=== PATIENT | female | born 1990 | race American Indian/Alaskan Native ===

== ENCOUNTER 2017-03-07 07:23 | Day surgery (SDC) | payer BC ==
[~2017-03-07 07:23] MED LIST: ANCEF/STERILE WATER 2 GM/20 ML IV NR
--- NOTE | 2017-03-07 09:31 | Anesthesia Consultation ---
Anesthesia Consult and Med Hx Date of service: 03/07/17 - Airway Anesthetic Teeth Evaluation: Good ROM Head & Neck: Adequate Mental/Hyoid Distance: Adequate Mallampati Class: Class I - Pulmonary Exam CTA: Yes - Cardiac Exam Cardiac Exam: RRR Anesthetic Concerns: multiple veneers - Pre-Operative Health Status ASA Pre-Surgery Classification: ASA2 Proposed Anesthetic Plan: General - Pre-Anesthesia Comment Pre-Anesthesia Comments: S/P ASD repair, H/O TIA's due to ASD. None since repair - Central Nervous System Hx Psychiatric Problems: Yes (PTSD CHILD) - Hematic Hx Anemia: Yes - Other Systems Hx Alcohol Use: No Hx Substance Use: No Hx Cancer: No
--- NOTE | 2017-03-07 09:31 | Anesthesia Day of Surgery ---
Anesthesia Day of Surgery - Day of Surgery Patient Examined: Yes Patient H&P Reviewed: Yes Patient is NPO: Yes
[2017-03-07] MEDS ORDERED: ZOFRAN IV PRN (09:32)
[2017-03-07] MEDS ORDERED: NORCO 5/325 PO PRN (09:32)
[2017-03-07 09:56] LABS: Hematocrit 40.4 % (30.3-42.9); Hemoglobin 13.2 gm/dl (10.1-14.3)
[2017-03-07] MEDS ORDERED: VERSED IV NR (10:00)
[2017-03-07] MEDS ORDERED: PEPCID PO NR (10:00)
[2017-03-07] MEDS ORDERED: LACTATED RINGERS 1,000 ML IV SCH (10:00)
[2017-03-07] MEDS ORDERED: DILAUDID ONE (10:27)
[2017-03-07] MEDS ORDERED: DIPRIVAN 10 MG/ML IV ONE (10:27)
[2017-03-07] MEDS ORDERED: REGLAN PO NR (11:00)
[2017-03-07] MEDS ORDERED: XYLOCAINE MPF 2% ONE (11:54)
[2017-03-07] MEDS ORDERED: ZOFRAN ONE (12:03)
[2017-03-07] MEDS ORDERED: DECADRON ONE (12:03)
[2017-03-07] MEDS ORDERED: NEO SYNEPHRINE ONE (12:36)
[2017-03-07] MEDS ORDERED: NACL 0.9% 100 ML ONE (12:37)
[2017-03-07] MEDS ORDERED: NACL 0.9% IR ONE (12:46)
[2017-03-07] MEDS: DILAUDID IV PRN ×4 (13:20→15:00)
--- NOTE | 2017-03-07 13:55 | Operative Report ---
PREOPERATIVE DIAGNOSES: 1. Open wound of left axilla. 2. Hidradenitis suppurativa. POSTOPERATIVE DIAGNOSES: 1. Open wound of left axilla. 2. Hidradenitis suppurativa. PROCEDURE: 1. Tangential excision of ____ left axilla, approximately 80 square cm. 2. Split thickness skin graft to left axilla, 80 square cm. 3. Application of wound VAC to left axilla, 80 square cm. SURGEON: Raffi Carbajal MD DESCRIPTION OF PROCEDURE: The patient was brought to the operating room and placed on the table in supine position. Following administration of general anesthesia, the left arm and left thigh were prepped with a Betadine solution, draped in usual sterile manner. A #10 blade scalpel was used to tangentially excise the wound of the axilla until healthy bleeding tissue was encountered. Hemostasis controlled using electrocautery. Shar Brown dermatome was then used to harvest split thickness skin graft from the left thigh, measuring of an inch, meshed one half to one, then secured over the left axillary recipient site with lo, covered by Xeroform gauze and application of a wound VAC in standard manner. The donor site was covered with Xeroform gauze, ABD pad. The patient tolerated the procedure well and returned to recovery room in stable condition. JOB# [id number] FTW/NTS
--- NOTE | 2017-03-07 14:14 | Post Anesthesia Evaluation ---
- Post Anesthesia Evaluation Patient Participated: No (resting) Airway Patent: Yes Stable Respiratory Function: Yes Nausea/Vomiting: No Temp > 96.8F: Yes Pain Manageable: Yes Adequeate Hydration: Yes Anesthesia Complications: No Block Receding Appropriately: Not Applicable Patient on Ventilator: No
[2017-03-07 14:56] VITALS: BP 110/70
== END 2017-03-07 15:40 | disposition home or self-care (01) ==
LOC: OR 07:23
PROVIDERS: ATTEND Plastic Surgery
DX: L73.2 Hidradenitis suppurativa (principal); Z81.8 Family history of other mental and behavioral disorders; Z83.3 Family history of diabetes mellitus; Z82.49 Family history of ischemic heart disease and other diseases of the circulatory system; Z80.3 Family history of malignant neoplasm of breast
CPT/HCPCS: 11406; 15100; 36415; 81025; 85014; 85018; J0690; J1100; J1170; J2250; J2370; J2405; J2704